=== PATIENT | female | born 1935 | race Caucasian/White ===

== ENCOUNTER → 2023-06-10 11:56 | Outpatient (REF) | payer OTHER, SELFPAY | LOC: HWWDC 11:56 | PROVIDERS: ATTENDING PHYSICIAN Family Medicine | DX: Z12.31 Encounter for screening mammogram for malignant neoplasm of breast (principal) | CPT/HCPCS: 77063; 77067 ==

== ENCOUNTER → 2024-01-10 15:18 | Outpatient (REF) | payer OTHER, SELFPAY | LOC: HWRAD 15:18 | PROVIDERS: ATTENDING PHYSICIAN Family Medicine | DX: G44.89 Other headache syndrome (principal) | CPT/HCPCS: 70450 ==

== ENCOUNTER → 2024-06-12 10:20 | Outpatient (REF) | payer OTHER, SELFPAY | LOC: HWWDC 10:20 | PROVIDERS: ATTENDING PHYSICIAN Family Medicine | DX: Z12.31 Encounter for screening mammogram for malignant neoplasm of breast (principal) | CPT/HCPCS: 77063; 77067 ==